=== PATIENT | male | born 1980 | race Caucasian/White ===

== ENCOUNTER → 2017-09-01 11:37 | Outpatient (CLI) | payer OTHER, MEDICAID, SELFPAY ==
--- NOTE | 2017-09-01 11:39 | DI.RAD.S_ITS ---
PROCEDURE: XR WRIST LT MIN 3V INDICATIONS: L wrist pain TECHNIQUE: 3 views of the wrist were acquired. COMPARISON: [facility], WRIST MINIMUM 3 VIEWS RIGHT, 03/29/2008, 12:49. [facility], WRIST MINIMUM 3 VIEWS LEFT, 12/09/2007, 10:56. FINDINGS: Bones: No fractures or dislocations. No suspicious bony lesions. Mild interval enlargement of the distal scaphoid subchondral cyst indicating slight worsening of degenerative osteoarthritis in that area. Scaphoid view: No trauma Soft tissues: No suspicious soft tissue calcifications. IMPRESSION: No trauma found. There is a subchondral cyst at the distal aspect of the scaphoid bone, slightly larger than on the comparison study from November 2007. Dictated by: Rafael Salazar M.D. on 09/01/2017 at 12:29 Approved by: Rafael Salazar M.D. on 09/01/2017 at 12:30
== END ==
PROVIDERS: PCP Family Medicine; Visit Provider Physician Assistant
DX: M25.532 Pain in left wrist (principal)
CPT/HCPCS: 73110

== ENCOUNTER 2019-01-22 01:12 | Emergency (ER) | payer SELFPAY ==
[2019-01-22 01:25] VITALS: BP 136/99; PULSE 110; RESP 15; TEMP 36.4; O2SAT 97; BMI 25.4
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
--- NOTE | 2019-01-22 01:33 | DI.CT.S_ITS ---
PROCEDURE: CT HEAD/BRAIN WO CON INDICATIONS: right parietal/temporal injury TECHNIQUE: Noncontrast 4.5 mm thick angled axial sections acquired from the foramen magnum to the vertex, with coronal and sagittal reformats. For radiation dose reduction, the following was used: automated exposure control, adjustment of mA and/or kV according to patient size. COMPARISON: None. FINDINGS: Image quality: Diagnostic. CSF spaces: Basal cisterns are patent. No extra-axial fluid collections. Ventricles are normal in size and shape. Brain: No midline shift. No intracranial masses or hemorrhage. Faustin-white matter interface is normal. Skull and face: Calvarium and visualized facial bones are intact, without suspicious lesions. A scalp laceration is identified overlying the right convexity. No underlying fractures are evident. Sinuses: Visualized sinuses and mastoids are clear. IMPRESSION: No acute intracranial hemorrhage. Note: The preliminary report provided by [facility] is concordant with the final report. Dictated by: Sonu Ashley M.D. on 01/22/2019 at 8:11 Approved by: Sonu Ashley M.D. on 01/22/2019 at 8:12
[2019-01-22 02:49] VITALS: BP 131/96; PULSE 96; RESP 15; O2SAT 98
== END 2019-01-22 02:53 | disposition home or self-care (01) ==
PROVIDERS: Emergency Provider Emergency Medicine; Family Provider Family Medicine; PCP Family Medicine
DX: S01.01XA Laceration without foreign body of scalp, initial encounter (principal); Y00.XXXA Assault by blunt object, initial encounter
CPT/HCPCS: 12004; 70450; 99283; 99284

== ENCOUNTER 2024-11-02 09:54 | Emergency (ER) | payer OTHER, SELFPAY ==
[2024-11-02] VITALS (32 sets, daily range): BP systolic 142–183; BP diastolic 75–109; PULSE 51–89; RESP 20; TEMP 37; O2SAT 57–96; BMI 24.0
--- NOTE | 2024-11-02 10:03 | DI.RAD.S_ITS ---
PROCEDURE: XR HAND LT MIN 3V INDICATIONS: Trauma/amputation TECHNIQUE: 3 views of the hand(s) acquired. COMPARISON: None. FINDINGS: Bones: Traumatic amputation of the 2nd finger at the PIP joint. Traumatic dislocation with fragmentation at the PIP joints of the 3rd and 4th fingers. Soft tissues: No suspicious soft tissue calcifications. Significant soft tissue laceration at the ventral surface of the distal aspect of the thumb. Amputation of the 2nd finger at the PIP joint, significant lacerations of the 3rd and 4th fingers. IMPRESSION: 1. Amputation at the 2nd finger PIP joint. 2. Prominent laceration of the thumb. 3. Traumatic subluxation or dislocation at the PIP joints of the 3rd and 4th fingers with bony fragmentation. Dictated by: Mandeep Rucker M.D. on 11/02/2024 at 10:58 Approved by: Mandeep Rucker M.D. on 11/02/2024 at 11:05
--- NOTE | 2024-11-02 10:06 | ED_ITS ---
HPI - Extremity Problem General Chief complaint: Trauma Stated complaint: cut off finger Time Seen by Provider: 11/02/24 10:03 History of Present Illness HPI Narrative: Patient brought in by private vehicle. Has left index finger complete amputation with multiple lacerations to the other fingers including the thumb. Patient is right handed. Patient was at work using a table saw. Bleeding is controlled. Amputated digit is placed in a sterile bag. Cool saline. is at bedside. Related Data Allergies Allergy/AdvReac Type Severity Reaction Status Date / Time morphine (MORPHINE) Allergy Severe nausea Verified 11/02/24 10:00 vancomycin (VANCOMYCIN) Allergy Severe IV rash Verified 11/02/24 10:00 phenobarbital Allergy Intermediate Verified 11/02/24 10:00 Review of Systems Review of Systems Narrative: GENERAL: Negative chills, fatigue, malaise, fever, sweats. HEENT: Negative sinus pain, ear pain, sore throat RESPIRATORY: Negative dyspnea, cough CARDIOVASCULAR: Negative chest pain, palpitations GASTROINTESTINAL: Negative vomiting, nausea, abdominal pain : Negative dysuria, frequency, hematuria MUSCULOSKELETAL: Positive muscle or bony pain SKIN: Negative rash, skin lesions NEUROLOGIC: Negative weakness, numbness ROS Unobtainable: All systems reviewed & are unremarkable except as noted in HPI and below Patient History Medical History (Updated 11/02/24 @ 11:37 by Cuauhtemoc Camejo MD) Chronic hepatitis C without hepatic coma (05/25/14) Social History Smoking Status: Current some day smoker alcohol intake frequency: 0-2 drinks per day Exam Narrative Exam Narrative: GENERAL: in no distress, not toxic not dyspneic HEAD: Normocephalic. EYES: Pupils equal round ENT: Mucous membranes moist. EXTREMITIES: Examination left hand. Laceration to tip of the thumb, deep lacerations to the 3rd and 4th digits at the volar surface with limited range of motion due to function, there is amputation at the PIP joint of the index finger. NEURO: AOx4. Clear speech SKIN: Warm and dry PSYCH: Not anxious, is cooperative Initial Vital Signs Initial Vital Signs: Vital Signs Temperature 98.6 F 11/02/24 09:59 Pulse Rate 62 11/02/24 09:59 Respiratory Rate 20 11/02/24 09:59 Blood Pressure 160/94 H 11/02/24 09:59 Pulse Oximetry 95 11/02/24 09:59 Oxygen Delivery Method Room Air 11/02/24 09:59 Course Orders Ordered: Discontinued Medications Diphtheria/Tetanus/Acell Pertussis (Tet,Diph,Pertuss(Acell),Vac/Pf 0.5 Ml Syringe) 0.5 ml IM .ONCE ONE Stop: 11/02/24 10:04 Last Admin: 11/02/24 10:12 Dose: 0.5 ml Documented By: NIHARIKA Hydromorphone HCl (Hydromorphone 1 Mg Inj) 1 mg IV NOW ONE Stop: 11/02/24 10:04 Last Admin: 11/02/24 10:08 Dose: 1 mg Documented By: NIHARIKA Hydromorphone HCl (Hydromorphone 1 Mg Inj) 1 mg IV NOW ONE Stop: 11/02/24 12:02 Last Admin: 11/02/24 12:17 Dose: 1 mg Documented By: NIHARIKA Ampicillin Sodium/Sulbactam (Sodium 3 gm/ Sodium Chloride) 100 mls @ 200 mls/hr IV NOW ONE Stop: 11/02/24 10:05 Last Admin: 11/02/24 10:14 Dose: 200 mls/hr Documented By: NIHARIKA Ondansetron HCl (Ondansetron 4 Mg/2 Ml Inj) 4 mg IV NOW ONE Stop: 11/02/24 10:04 Last Admin: 11/02/24 10:08 Dose: 4 mg Documented By: NIHARIKA Vital Signs Vital signs: Vital Signs - 8 hr 11/02/24 09:59 Temperature 98.6 F Pulse Rate 62 Respiratory Rate 20 Blood Pressure 160/94 H Pulse Oximetry 95 Oxygen Delivery Method Room Air MDM - Extremity (Nontraumatic) Lab Data Labs: Lab Results 11/02/24 Range/Units 10:12 Blood Type A Positive Antibody Screen Negative Imaging Data Extremity x-ray #1: Radiologist's Impression: [address] [address] XRay Report Signed Patient: Bob Monreal MR#: [id number] : 1980 Acct:[id number] Age/Sex: 44 / M Date of Service: 11/02/24 Loc: ED Accession Number: [id number] Procedure: XR hand LT min 3V Ordering Provider: Cuauhtemoc Camejo MD PROCEDURE: XR HAND LT MIN 3V INDICATIONS: Trauma/amputation TECHNIQUE: 3 views of the hand(s) acquired. COMPARISON: None. FINDINGS: Bones: Traumatic amputation of the 2nd finger at the PIP joint. Traumatic dislocation with fragmentation at the PIP joints of the 3rd and 4th fingers. Soft tissues: No suspicious soft tissue calcifications. Significant soft tissue laceration at the ventral surface of the distal aspect of the thumb. Amputation of the 2nd finger at the PIP joint, significant lacerations of the 3rd and 4th fingers. IMPRESSION: 1. Amputation at the 2nd finger PIP joint. 2. Prominent laceration of the thumb. 3. Traumatic subluxation or dislocation at the PIP joints of the 3rd and 4th fingers with bony fragmentation. Dictated by: Mandeep Rucker M.D. on 11/02/2024 at 10:58 Approved by: Mandeep Rucker M.D. on 11/02/2024 at 11:05 [facility] Narrative Medical decision making narrative: Patient brought in by private vehicle. Has left index finger complete amputation with multiple lacerations to the other fingers including the thumb. Patient is right handed. Patient was at work using a table saw. Bleeding is controlled. Amputated digit is placed in a sterile bag. Cool saline. is at bedside. After history and exam, likely transferred to [facility] ER. X- ray left hand Tdap Geraldine Peguero [facility] Medical records reviewed: No recent visit for this complaint Differential considered: Includes but not limited to finger amputation tendon laceration multiple laceration Imaging studies independently reviewed: X-ray left hand amputation 2nd PIP, dislocations subluxations 3rd and 4th fingers Consultations: 10:46 a.m.. I spoke with Dr. Flores with [facility] hand surgery, she recommends trying to keep patient here because reimplantation is low viability. However, if Orthopedics not comfortable with the other 2 finger injuries then she will accept patient to [facility] Emergency Department. Review with patient what they would want. I did review with patient and at bedside. Patient does not want reimplantation. You would like to try to stay here for surgical repair of all 3 fingers 11:34 a.m.. I spoke with Dr. Levine [facility] with [facility], she has a instructed to transfer to [facility] for of the tendinous injuries to the 3rd and 4th digits. Re-evaluations: 11:37 a.m.. I spoke with patient and family. They do agree and understand need for transfer for higher level of care. Patient at this time still does not want reimplantation Discussion: Appropriate for transfer for higher level of care. I have spoken with Orthopedics at our facility and at [facility] Diagnosis: Finger amputation, finger laceration Discharge Plan Departure Patient Disposition: [facility] Clinical Impression: Amputation finger-complicated Qualifiers: Encounter type: initial encounter Qualified Code(s): S68.119A - Complete traumatic metacarpophalangeal amputation of unspecified finger, initial encounter Referrals: Derick Wetzel MD [Primary Care Provider, Family Practice]
[2024-11-02] MEDS: ONDANSETRON 4 MG/2 ML INJ IV (10:08)
[2024-11-02] MEDS: HYDROMORPHONE 1 MG INJ IV ×2 (10:08→12:17)
[2024-11-02] MEDS: TET,DIPH,PERTUSS(ACELL),VAC/PF 0.5 ML SYRINGE IM (10:12)
[2024-11-02] MEDS: AMPICILLIN/SULBACTAM 3 GM 3 GM in SODIUM CHLORIDE 0.9% 100 ML IV (10:14)
--- NOTE | 2024-11-02 10:35 | PC.NURSE ---
Pt arrived to the ed via pov for left index finger amputation while using table saw with jagged blade. Left middle, ring and pinky finger jagged lacerations. Pt states that he is unable to move fingers. Pt arrived with left index finger wrapped in gauze. Finger placed in plastic bag and set on ice. Pt states pain is 7/10 and that his hand mostly feels numb and his pinky finger hurts the most. pt is a&ox4 and ambulated into dept with steady gait. HTN during triage but has since resolved and VS WNL. Dr Camejo at bedside during triage and to put in orders for pain medication, tetanus, nausea medication and antibiotics.
--- NOTE | 2024-11-02 12:23 | PC.NURSE ---
Pt remains a&ox4. 10/[address] Camejo notified and verbal order for 1mg IV dilaudid received.
== END 2024-11-02 12:54 | disposition short-term general hospital (02) ==
PROVIDERS: Emergency Provider Emergency Medicine; Family Provider Family Medicine; PCP Family Medicine
DX: S68.611A Complete traumatic transphalangeal amputation of left index finger, initial encounter (principal); S63.235A Subluxation of proximal interphalangeal joint of left ring finger, initial encounter; S63.237A Subluxation of proximal interphalangeal joint of left little finger, initial encounter; W27.0XXA Contact with workbench tool, initial encounter; Y99.0 Civilian activity done for income or pay; Z23 Encounter for immunization
CPT/HCPCS: 73130; 86850; 86900; 86901; 90471; 96374; 96375; 96376; 99284; 90715; J0295; J1171; J2405

== ENCOUNTER 2025-01-17 14:30 | Outpatient (RCR) | payer OTHER, SELFPAY ==
--- NOTE | 2024-12-22 19:22 | PT.OPPOC ---
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, subsequent encounter (12/22/24) Partial traumatic transphalangeal amputation of left middle finger, subsequent encounter (12/22/24) Partial traumatic transphalangeal amputation of left ring finger, subsequent encounter (12/22/24) Other specified postprocedural states (12/22/24) Visit Care Team Role Provider Type Matthew Osuna MD Family Provider Physician Primary Care Provider Specialty: Family Practice Address: [address] [place] [address], [facility] [place], [facility] Email: [email or web address] Kushal Rivera MD Attending Provider Non-Staff Referring Provider Specialty: Plastic Surgery Address: [address] [place] [address], [place] [id number], [place], [place], [facility] Email: Plan Of Care PT OP: Cervical/Upper Extremity Start: 12/22/24 07:25 Freq: Status: Active Protocol: Document 12/22/24 09:03 LRN (Rec: 12/22/24 09:56 LRN Laptop) Out-Patient Physical Therapy Visit Information Visit Information Visit Type Initial Evaluation Visit Note No further return visits planned. Visit Start Time 09:03 Visit Stop Time 09:43 Visit Number 1 Progress Note Due 01/21/25 Evaluation Information Evaluation Date 12/22/24 Precautions Precautions 1/2 pack/day smoker, hx of alcohol and drug abuse, R Shoulder surgery 25 yrs ago. Current Condition History of Current Condition Onset Date 11/02/24 Current Complaints Pt complaint is he can't do a fist because of tightness & ache in forearm. History of Current Pt reports he was using an electric saw for fadi Condition and the L 2nd-4th digits became amputated. He tried to collect his fingers but because there was so much damange he was not able to have his fingers reattached. He states he was referred to physical therapy by the physician at [facility] and does not know why. States his L hand index and thumb had stitches that did not dissolve, therefore was not healing, so her independently removed the stitches by himself and reports the incisions are now healing/healed. He has been doing gripping motions 10x/hour as instructed at discharge. Prior Treatments and None Tests Treatment Goals Patient/Caregiver Pt goals: Goals HEP to decrease L hand swelling. Improve Left 2nd-4th digits ROM at remaining joint (MCP jt). 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 Effect Therapy/ 1/2 pack/day smoker, Recovery History of alcohol and drug abuse. Patient Questionnaires Quick Dash- Upper Extremity Quick Dash UE Score 79.54 OP-PT Pain Assessment Location L hand Pain Location Stump of amputed 2-4 digits Details Pain Intensity 2 Scale Used Numeric (0 - 10) Description- Other Pain at stump of index finger rated 3/10 Manual Assessments Soft Tissue Assessment Soft Tissue Mobility Edema of L hand and stumps of L digits 2-4. Assessment Decreased skin mobility at distal stump ends of L digits 2-4. Palpation Assessment Location L hand/digits 2-4 Palpation Findings Edema,Soft Tissue Tightness,Tenderness Palpation Details Temperature is very slightly warmer on the L digits 2-4 . Skin Assessment Edema Assessment Left Hand Edema Type Non-Pitting Edema Degree 1+ Query Text:1+ Trace, Barely Detectable, Rebound Immediate 2+ Moderate, Slight Indentation, Rebound a few seconds 3+ Deep, Deeper Indentation, Rebound 10-12 seconds 4+ Very Deep, Rebound > 20 seconds Edema Appearance Firm,Puffy,Taut Subjective Edema Tightness Description Circumference Measurement L pinky finger proximal phalange space Measurement ( 8 Centimeters) Comments R hand measurement is 6.6 L ring finger proximal phalange space Measurement ( 8 Centimeters) Comments R hand measurement is 6.5 L middle finger proximal phalange space Measurement ( 8 Centimeters) Comments R hand measurement is 7 L index finger proximal phalange space Measurement ( 8 Centimeters) Comments R hand measurement is 7 Wrist Goniometric Range of Motion Wrist Measured in Degrees Right Wrist ROM WFL Yes Flexion Active ( 70 degrees) Extension Active ( 59 degrees) Ulnar Deviation 32 Active (degrees) Radial Deviation 36 Active (degrees) Left Wrist ROM WFL No Flexion Active ( 55 degrees) Extension Active ( 65 degrees) Ulnar Deviation 25 Active (degrees) Radial Deviation 36 Active (degrees) Finger Goniometric Range of Motion Finger Measured in Degrees Right Fifth Finger ROM WFL Yes MCP Flexion Active ( 92 degrees) MCP Extension Active 10 (degrees) PIP Flexion Active ( 87 degrees) DIP Flexion Active ( 72 70-90 degrees) Left Fifth Finger ROM WFL Yes MCP Flexion Active ( 83 degrees) MCP Extension Active 10 (degrees) PIP Extension Active 80 (degrees) DIP Flexion Passive 103 H (70-90 degrees) Right Fourth Finger ROM WFL Yes MCP Flexion Passive 90 (degrees) MCP Extension Active 10 (degrees) Right Third Finger ROM WFL Yes MCP Flexion Active ( 85 degrees) MCP Extension Active 10 (degrees) Right Second Finger ROM WFL Yes MCP Flexion Active ( 80 degrees) MCP Extension Active 10 (degrees) Left Fourth Finger ROM WFL No MCP Flexion Active ( 78 degrees) MCP Extension Active 0 (degrees) Left Third Finger ROM WFL No MCP Flexion Active ( 73 degrees) MCP Extension Active 0 (degrees) Left Second Finger ROM WFL No MCP Flexion Active ( 75 degrees) MCP Extension Active 0 (degrees) Wrist Strength Wrist Manual Muscle Testing Right Comments Strength is 5/5. (Pronation and Supination not tested ) Left Flexion (C7) 4- Good- Comments Strength is 5/5 except as indicated above. (Pronation and Supination not tested) Hand Range Operator/Pinch Strength Hand Dominance Hand Dominance Left Therapeutic Exercises Sitting Exercises Wrist stretch Sitting Exercise Elbow extended for wrist flex/ext stretch w/o onset of Name sensation changes. Side left Reps/Minutes 2' Comments Cued avoid stretch into pain or into sensation changes. Finger flexion Sitting Exercise Gripping motion to be done without sensation changes. Name Side left Reps/Minutes 2' Comments Cued wrist in neutral to perform asst'd finger flex at MCP jt & no pain. Self-Care/Home Management Treatment Education Other Education Discussed results of evaluation, goals, treatment, and plan of care (POC) with pt; pt agreeable to evaluation, goals, treatment and POC. Pt educated in edema management with use of compression and elevation. Discussed use of compression with isotoner glove to be worn on waking in the morning before putting the hand in dependent position. Discussed elevating the hand when possible. Pt reported he sleeps with his hand in elevation. Physical Therapy Assessment Rehab Potential Rehabilitation Good Potential Evaluation Complexity Number of Personal 1-2 Factors/ Comorbidities Number of Body 4 or More Systems Impaired Clinical Evolving Presentation at Evaluation Impairments Impairments Edema,ROM,Soft Tissue Mobility,Strength Goals Four Impairment Decreased L hand strength Electrical Equipment Assembler Goal (LTG) Improve L hand/finger strength with pt able to assistant director/ grasp without forearm pain onset. LTG Duration 02/16/25 Three Impairment L hand/fingers edema Short Term Goal (STG Pt will be educated in edema management of L hand ( ) elevation, compression, massage, contrast baths). STG Duration 01/19/25 Care Home Goal (LTG) HEP to decrease L hand swelling and relieve feeling of tension with gripping motion. LTG Duration 02/16/25 Two Impairment ROM Care Home Goal (LTG) Improve Left hand 2nd-4th digits AROM at remaining joint (MCP jt) to reduce feeling of strain at his forearm with use of hand. LTG Duration 02/16/25 One Impairment HEP Care Home Goal (LTG) Pt will be independent in a self care HEP of wrist, hand, and finger ROM and strengthening exercises. LTG Duration 02/16/25 Assessment Summary Assessment Pt is a 44 yo male who presents s/p amputation of the L hand digits 2-4 proximal to the PIP jts, with edema of the hand and limited wrist & MCP jt mobility and some weakness of the L wrist. He has soft tissue restrictions of his well healed incisions of L hand digits 3 and 4, but scabs are still present in his index finger at the stump and on the pad of his thumb. He appears to have symptoms of UE neural tightness with reported sensation changes with wrist AROM when in full elbow extension, and when using his L UE. MMT of the finger joints was deferred at this time due to neural sensation changes and stiffness/swelling complaints. His strength will be assessed at the next visit. Dec'd L wrist flex, UD AROM, Physical Therapy Plan Frequency and Duration Frequency of 1x/Week Treatment Duration of 8 treatment (weeks) Plan of Care Start 12/22/24 Date Plan of Care End 02/16/25 Date Therapeutic Interventions Therapeutic Home Exercise Program,Joint Mobilizations,Manual Interventions Therapy,Neuromuscular Re-education,Self-Care/Home Management,Soft Tissue Mobilization,Taping,Therapeutic Activities,Therapeutic Exercises Modalities Cold Pack/Ice Massage,Paraffin Bath,Ultrasound Next Visit Focus/Plan Next Note Type Treatment Note Next Visit Plan Next: Assess pastor MCP jt (flex/ext, AB/AD) & wrist forearm sup/pron strength. Asssess pron/sup AROM and PROM digits 2-4 MCP jts. Assess UE neural tension. Educate pt in contrast bath and general RICE & Lymph massage treatment for L hand pain and edema. Ther Ex: ROM and strengthening of hand fingers & instrinsics/forearm/elbow, and UE neural tension. HEP as needed. POC: Pt education, Manual therapy, Therapeutic Exercises, Therapeutic Activities. Plan of Care Dates Plan of Care Start Date 12/22/24 Plan of Care End Date 02/16/25 Electronically Signed by: Christen Harman, PT 12/22/24 4712 If you are in agreement with this Plan of Care, please return a signed and dated copy. I have reviewed this Plan of Care and certify that the skilled therapy services above are required to meet the patient?s needs. Physician Signature Date Printed Name and Credentials Clinical Instructor Signature Printed Name and Credentials
--- NOTE | 2025-01-10 11:33 | PT.OTN ---
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 Visit Start Time 10:46 Visit Stop Time 11:33 Visit Number 40 Number of LAPPING MACHINE OPERATOR Visits 2 Progress Note Due 01/21/25 OP-PT Subjective Patient Comments Patient Comments He will find out Th if cleared to go back to work, he owns a [employer] business. Pt started self gripping and wrist flexion and extension activity with 2.5# wt a few days ago. Pt reports hand stiffness on waking but uses warm water bath and motion to work out stiffness. Pt started to desensitise L hand moving in and out of water, and then moving his fingers around in rice the past 2 weeks, 3-4 th finger tips doing great no pain, 2nd finger tip still has irritation sensitivity. He plays with his dog and dogs come up to him quick and has bumped 2nd tip of finger into dogs nose, painful, so trying to be more conscious of not doing this. Pt doing some self massage of L fingers/hand. Finger Goniometric Range of Motion Finger Right Fourth Finger ROM WFL Yes MCP Flexion Active ( 94 degrees) Right Third Finger ROM WFL Yes MCP Flexion Active ( 85 degrees) MCP Extension Active 10 (degrees) Left Fourth Finger ROM WFL No MCP Flexion Active ( 96 degrees) Left Third Finger ROM WFL No MCP Flexion Active ( 94 degrees) Left Second Finger ROM WFL No MCP Flexion Active ( 95 degrees) Therapeutic Exercises Sitting Exercises AROM Sitting Exercise measurements taken of L hand finger 2-4 MCPjt. Name Comments see measurements Finger Adduction Sitting Exercise Fingers: 2-3, 3-4, 4-5 Name Side left Resistance yellow putty between MTPs Reps/Minutes 5 reps each Comments Extra time ed focus on 2-3, 3-4, 4-5 slow squeeze into putty Finger extension Sitting Exercise Finger extension into putty, with manual resistance- Name declined HO for HEP Side left Resistance AROM hand on table manual resistance, yellow putty Reps/Minutes 3 each Comments Cues start position in finger flexion, pn at tip of index Wrist stretch Sitting Exercise Elbow extended for wrist flex/ext stretch w/o onset of Name sensation changes. Side left Resistance HEP reviewed Reps/Minutes 5 reps ( 10 reps each daily home) Comments Cued avoid stretch into pain or into sensation changes- still feels nerve Finger flexion Sitting Exercise Gripping motions, opposition fingers to thumb Name Side left Resistance AROM then added yellow putty 01/10/25 Reps/Minutes 10 reps x2 each Comments Cued for individual fingers in opposition to thumb, slow and focused Manual Therapy Treatment Consent Patient gave verbal Yes consent for manual treatment Soft Tissue Mobilization Left forearm Body Location forearm extensors and flexors Mobilization Type Myofascial Release,Rolling,Sustained Pressure,Other Body Position Sitting Comments minimal-moderate pressure with feedback during elongated stroke glides, cross glides, sustained pressure superior glide with wrist flexion then wrist extension Left hand Body Location Tendon and intrinic Mobilization Type Myofascial Release,Rolling,Sustained Pressure,Other Body Position Sitting Comments minimal pressure over tendon with feedback during elongated stroke glides, cross glides, sustained pressure superior glide with wrist flexion then wrist extension Joint Mobilizations L hand Joint MCP jt A<>P, rotation finger 2-4 Grade II Body Position Sitting Comments Good feedback response. Physical Therapy Assessment Goals Four Impairment Decreased L hand strength Correction Goal (LTG) Improve L hand/finger strength with pt able to ticket taker ferryboat/ grasp without forearm pain onset. 01/10/25: added finger opposition AROM 1-2-5, MTP jt flexion 2-4 against yellow putty for strength, wrist 6 way against resistance TB #2 teal green. LTG Duration 02/16/25 progression 01/10/25 Three Impairment L hand/fingers edema Short Term Goal (STG Pt will be educated in edema management of L hand ( ) elevation, compression, massage, contrast baths). 01/10/25: GOAL MET. pt is already performing elevation, compression, self massage and warm baths which is helping with not much edema. STG Duration 01/19/25 GOAL MET Physiological Chemist Goal (LTG) HEP to decrease L hand swelling and relieve feeling of tension with gripping motion. 01/10/25: LAPPING MACHINE OPERATOR assisted moderate manual retrograde STMs and superior glides over finger and forearm extensors with wrist flexion and finger flexion to support decrease tension into ticket taker ferryboat motions. LTG Duration 02/16/25 progressing 01/10/25 Two Impairment ROM Physiological Chemist Goal (LTG) Improve Left hand 2nd-4th digits AROM at remaining joint (MCP jt) to reduce feeling of strain at his forearm with use of hand. 01/10/25: Updated L hand fingers 2-4 MCPjt flexion AROM measurement, see data, almost 18-20 deg improvement overall. LTG Duration 02/16/25 One Impairment HEP Physiological Chemist Goal (LTG) Pt will be independent in a self care HEP of wrist, hand, and finger ROM and strengthening exercises. 01/10/25: added putty finger flexion/extension/adduction , ticket taker ferryboat squeeze, wrist 6 way against theraband resistance. LTG Duration 02/16/25 progressing 01/10/25 Assessment Summary Assessment Pt good feedback to manual and understanding of self support of manual STMs and use of superior glides over tendons in hand and forearm muscularture with finger AROM to actively elongate musculature allowing progression into flexion and extension of wrist and fingers. Today progressed strength of wrist use of theraband and hand with instruction use of putty and manual resistance to L 2-4 finger flexion and extension today for ability to be able to carry items in L hand. Physical Therapy Plan Frequency and Duration Frequency of 1x/Week Treatment Duration of 8 treatment (weeks) Plan of Care Start 12/22/24 Date Plan of Care End 02/16/25 Date Next Visit Focus/Plan Next Note Type Progress Note Next Visit Plan 30 day progress note next appt with a PT. Next tx: Assess L hand 2-4 fingers and hand edema with measurements and AROM if needed. Assess pastor MCP jt ( flex/ext, AB/AD) & wrist forearm sup/pron strength. Asssess pron/sup AROM and PROM digits 2-4 MCP jts. Assess UE neural tension if is improving. Per PT POC: Ther Ex: porgression ROM and strengthening of hand fingers & instrinsics/forearm/elbow, and UE neural tension. HEP as needed. POC: Pt education, Manual therapy, Therapeutic Exercises, Therapeutic Activities.
--- NOTE | 2025-01-17 15:47 | PT.OPPN ---
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, subsequent encounter (01/17/25) Partial traumatic transphalangeal amputation of left middle finger, subsequent encounter (01/17/25) Partial traumatic transphalangeal amputation of left ring finger, subsequent encounter (01/17/25) Other specified postprocedural states (01/17/25) Physical Therapy Progress Note PT OP: Cervical/Upper Extremity Start: 12/22/24 07:25 Freq: Status: Active Protocol: Document 01/17/25 14:52 JZ (Rec: 01/17/25 15:46 JSandro [id number]) Out-Patient Physical Therapy Visit Information Visit Information Visit Type Treatment Note Visit Start Time 14:35 Visit Stop Time 15:15 Visit Number 40 Number of PRODUCTION POTTER Visits 0 Progress Note Due 02/16/25 OP-PT Subjective Patient Comments Patient Comments Patient reports he is doing well overall. He has been progressing his hand strengthening and ROM exercises as instructed and has been doing his home program consistently. He has also been doing his desensitization exercises. Therapeutic Exercises Sitting Exercises Digit 2-4 PROM Reps/Minutes x6 each digit Comments PROM and hold actively for 3 Thumb to digits 2-5 pinch Reps/Minutes 6x3 hold for each digit Band wrist flexion Resistance level 5 Reps/Minutes 2x15 Band wrist extension Resistance level 5 Reps/Minutes 2x15 Finger Adduction Sitting Exercise Fingers: 2-3, 3-4, 4-5 Name Side left Resistance yellow putty between MTPs Reps/Minutes 5 reps each Comments Extra time ed focus on 2-3, 3-4, 4-5 slow squeeze into putty Finger flexion Sitting Exercise Gripping motions, opposition fingers to thumb Name Side left Resistance AROM then added orange putty 01/10/25 Reps/Minutes 10 reps x2 each Comments Cued for individual fingers in opposition to thumb Physical Therapy Assessment Goals Four Impairment Decreased L hand strength Care Home Goal (LTG) Improve L hand/finger strength with pt able to light armored reconnaissance officer/ grasp without forearm pain onset. 01/10/25: added finger opposition AROM 1-2-5, MTP jt flexion 2-4 against yellow putty for strength, wrist 6 way against resistance TB #2 teal green. LTG Duration 02/16/25 progression 01/10/25 Three Impairment L hand/fingers edema Short Term Goal (STG Pt will be educated in edema management of L hand ( ) elevation, compression, massage, contrast baths). 01/10/25: GOAL MET. pt is already performing elevation, compression, self massage and warm baths which is helping with not much edema. STG Duration 01/19/25 GOAL MET Care Home Goal (LTG) HEP to decrease L hand swelling and relieve feeling of tension with gripping motion. 01/10/25: PRODUCTION POTTER assisted moderate manual retrograde STMs and superior glides over finger and forearm extensors with wrist flexion and finger flexion to support decrease tension into light armored reconnaissance officer motions. LTG Duration 02/16/25 progressing 01/10/25 Two Impairment ROM Video Manager Goal (LTG) Improve Left hand 2nd-4th digits AROM at remaining joint (MCP jt) to reduce feeling of strain at his forearm with use of hand. 01/10/25: Updated L hand fingers 2-4 MCPjt flexion AROM measurement, see data, almost 18-20 deg improvement overall. LTG Duration 02/16/25 One Impairment HEP Video Manager Goal (LTG) Pt will be independent in a self care HEP of wrist, hand, and finger ROM and strengthening exercises. 01/10/25: added putty finger flexion/extension/adduction , light armored reconnaissance officer squeeze, wrist 6 way against theraband resistance. LTG Duration 02/16/25 progressing 01/10/25 Assessment Summary Assessment Treatment focused on digit 2-4 AROM and strengthening. Patient tolerated treatment well, reporting muscular fatigue near end of sets. Patient continues to respond to therapy well and will continue to benefit from PT to address remaining deficits, address pain and phantom symptoms, and maximize function. Physical Therapy Plan Frequency and Duration Frequency of 1x/Week Treatment Duration of 8 treatment (weeks) Plan of Care Start 12/22/24 Date Plan of Care End 02/16/25 Date Next Visit Focus/Plan Next Visit Plan Next tx: Assess L hand 2-4 fingers and hand edema with measurements and AROM if needed. Assess pastor MCP jt ( flex/ext, AB/AD) & wrist forearm sup/pron strength. Asssess pron/sup AROM and PROM digits 2-4 MCP jts. Assess UE neural tension if is improving. Per PT POC: Ther Ex: porgression ROM and strengthening of hand fingers & instrinsics/forearm/elbow, and UE neural tension. HEP as needed.
--- NOTE | 2025-02-07 07:45 | PT.OPDS ---
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 Kushal Rivera MD Attending Provider Non-Staff Referring Provider Specialty: Plastic Surgery Address: [address] [place] [address], [place] [id number], [place], [place], [facility] Email: Visit Number Visit Number 40 Discharge Summary PT OP: Cervical/Upper Extremity Start: 12/22/24 07:25 Freq: Status: Active Protocol: Document 02/07/25 07:40 AIDE (Rec: 02/07/25 07:44 AIDE [id number]) Out-Patient Physical Therapy Visit Information Visit Information Visit Type Discharge Summary Physical Therapy Plan Next Visit Focus/Plan Next Visit Plan Patient has cancelled his remaining appointments and will be discharged at this time due to lack of follow up. According to previous notes, patient has been receiving rehab services at another facility. Please reach out to [facility] Physical Therapy department with any questions.
== END 2025-02-08 10:59 | disposition home or self-care (01) ==
LOC: PHYS 14:30
PROVIDERS: Family Provider Family Medicine; PCP Family Medicine; Referring Provider Surgery Surgery of the Hand; Visit Provider Surgery Surgery of the Hand
DX: Z98.890 Other specified postprocedural states (principal); S68.623D Partial traumatic transphalangeal amputation of left middle finger, subsequent encounter; S68.625D Partial traumatic transphalangeal amputation of left ring finger, subsequent encounter; S68.621D Partial traumatic transphalangeal amputation of left index finger, subsequent encounter; M25.632 Stiffness of left wrist, not elsewhere classified
CPT/HCPCS: 97110; 97140; 97162; 97535